=== PATIENT | female | born 2000 | race Caucasian/White ===

== ENCOUNTER 2022-03-26 09:31 | Emergency (ER) | payer OTHER ==
[~2022-03-26] VITALS: Ht 157.5 cm; Wt 47.9 kg
[~2022-03-26 09:31] MED LIST: ESCI10TA PO; GLYB-200 PO
[2022-03-26 10:15] VITALS: BP 125/73
--- NOTE | 2022-03-26 11:00 | NUR ---
C/O RIGHT INDEX FINGER PAIN, SWELLING X 2 MONTHS.
[2022-03-26] MEDS ORDERED: IBUPROFEN 600 MG TAB PO ONE (12:20)
--- NOTE | 2022-03-26 12:29 | NUR ---
PER ER MID LEVEL, ALUMINUM FINGER SPLINT APPLIED TO R INDEX FINGER. + CMS AFTER APPLICATION.
[2022-03-26] MEDS ORDERED: IBUP-2213 PO (12:35)
[2022-03-26 12:46] VITALS: BP 125/73
--- NOTE | 2022-03-26 12:46 | NUR ---
Patient discharged with v/s stable. Written and verbal after care instructions given and explained. Patient alert, oriented and verbalized understanding of instructions. Ambulatory with steady gait. All questions addressed prior to discharge. ID band removed. Patient advised to follow up with PMD. Rx of ibuprofen (sent) given. Patient educated on indication of medication including possible reaction and side effects. Opportunity to ask questions provided and answered. work note, copy of xray given
== END 2022-03-26 12:46 | disposition home or self-care (01) ==
LOC: MED 09:31
DX: M79.644 Pain in right finger(s) (principal)
CPT/HCPCS: 73140; 99283